=== PATIENT | female | born 1945 | race Native Hawaiian/Other Pacific Islander ===

== ENCOUNTER 2016-09-16 12:50 | Outpatient (CLI) | payer OTHER | END 2016-09-16 14:00 | disposition home or self-care (01) | LOC: LABW 12:50 | DX: N39.0 Urinary tract infection, site not specified (principal) | CPT/HCPCS: 81000 ==

== ENCOUNTER 2016-09-23 14:06 | Outpatient (CLI) | payer OTHER | END 2016-09-23 19:05 | disposition home or self-care (01) | LOC: CT 14:06 | DX: R10.30 Lower abdominal pain, unspecified (principal) | CPT/HCPCS: 36415; 82565; 84520; Q9963 ==

== ENCOUNTER 2018-07-05 11:44 | Outpatient (CLI) | payer OTHER ==
[2018-07-05 11:58] LABS: PLATELET COUNT 257 K/uL (152-353)
[2018-07-05 12:21] LABS: POTASSIUM 3.9 mmol/L (3.6-5.2)
== END 2018-07-05 19:57 | disposition home or self-care (01) ==
LOC: LABW 11:44
PROVIDERS: Nurse Practitioner
DX: R53.83 Other fatigue (principal); E03.4 Atrophy of thyroid (acquired); E78.00 Pure hypercholesterolemia, unspecified; Z13.1 Encounter for screening for diabetes mellitus; E55.9 Vitamin D deficiency, unspecified; Z79.899 Other long term (current) drug therapy
CPT/HCPCS: 36415; 80053; 80061; 82306; 83036; 84443; 85027

== ENCOUNTER 2018-09-10 08:58 | Outpatient (CLI) | payer OTHER ==
[~2018-09-10] VITALS: Ht 165.1 cm; Wt 98.0 kg
[2018-09-10 09:10] VITALS: BP 128/78; TEMP 97.8
== END 2018-09-10 10:20 | disposition home or self-care (01) ==
LOC: INF 08:58
DX: M85.80 Other specified disorders of bone density and structure, unspecified site (principal)
CPT/HCPCS: 36415; 82310; 96372; J0897

== ENCOUNTER 2019-01-24 15:41 | Outpatient (CLI) | payer OTHER ==
[2019-01-24 16:10] LABS: PLATELET COUNT 266 K/uL (152-353)
[2019-01-24 16:19] LABS: POTASSIUM 3.9 mmol/L (3.6-5.2)
== END 2019-01-24 19:33 | disposition home or self-care (01) ==
LOC: LAB 15:41
PROVIDERS: Nurse Practitioner
DX: R53.82 Chronic fatigue, unspecified (principal); E11.49 Type 2 diabetes mellitus with other diabetic neurological complication; E55.9 Vitamin D deficiency, unspecified; E03.8 Other specified hypothyroidism; E78.00 Pure hypercholesterolemia, unspecified; E53.8 Deficiency of other specified B group vitamins
CPT/HCPCS: 80053; 80061; 82043; 82306; 82570; 82607; 83036; 84443; 85027